=== PATIENT | male | born 1965 | race Caucasian/White ===

== ENCOUNTER 2024-07-16 18:00 | Inpatient (IN) | payer OTHER ==
[2024-07-16 18:02] VITALS: BMI 21.5
[2024-07-16] MEDS ORDERED: levETIRAcetam 500 MG TABLET (FP) PO ONE (18:08)
[2024-07-16] MEDS ORDERED: LORazepam 2 MG TABLET ONE (18:08)
[2024-07-16] MEDS ORDERED: DICYCLOMINE HCL 10 MG CAPSULE PO PRN (18:10)
[2024-07-16] MEDS ORDERED: BENZOCAINE/MENTHOL (CHLORASEPTIC ) LOZENGE MM PRN (18:10)
[2024-07-16] MEDS ORDERED: NICOTINE POLACRILEX 2 MG LOZENGE BC PRN (18:10)
[2024-07-16] MEDS ORDERED: ONDANSETRON *ODT* 4 MG TABLET SL PRN (18:10)
[2024-07-16] MEDS ORDERED: MAG HYDROX/AL HYDROX/SIMETH 30 ML UNIT-DOSE CUP PO PRN (18:10)
[2024-07-16] MEDS ORDERED: ACETAMINOPHEN 325 MG TABLET (FP) PO PRN (18:10)
[2024-07-16] MEDS ORDERED: LOPERAMIDE HCL 2 MG CAPSULE PO PRN (18:10)
[2024-07-16] MEDS ORDERED: P-EPHED 60MG/TRIPROLIDI 2.5MG TABLET PO PRN (18:10)
[2024-07-16] MEDS ORDERED: POLYETHYLENE GLYCOL (HEALTHYLAX) 3350 17 GM PACKET PO PRN (18:10)
[2024-07-16] MEDS ORDERED: NALOXONE (NARCAN) HCL 4 MG/0.1 ML SPRAY NS PRN (18:10)
[2024-07-16] MEDS ORDERED: IBUPROFEN 400 MG TABLET (FP) PO PRN (18:10)
[2024-07-16] MEDS ORDERED: BISMUTH SUBSALICYLATE 524 MG/30 ML PO PRN (18:10)
[2024-07-16] MEDS ORDERED: guaiFENesin 600 MG TABLET.ER (FP) PO PRN (18:10)
[2024-07-16] MEDS ORDERED: BENZONATATE 200 MG CAPSULE PO PRN (18:10)
[2024-07-16] MEDS ORDERED: NICOTINE POLACRILEX 2 MG GUM BUC PRN (18:10)
[2024-07-16] MEDS: LORazepam 2 MG TABLET PO ONE (18:11)
[2024-07-16] MEDS: levETIRAcetam 500 MG TABLET (FP) PO ONE (18:11)
[2024-07-16] MEDS ORDERED: chlordiazePOXIDE HCL 25 MG CAPSULE ONE (19:07)
[2024-07-16] MEDS: chlordiazePOXIDE HCL 25 MG CAPSULE PO ONE (19:11)
[2024-07-16] MEDS ORDERED: levETIRAcetam 250 MG TABLET PO ONE (21:39)
[2024-07-16] MEDS: levETIRAcetam 500 MG TABLET (FP) PO SCH (22:41)
[2024-07-16] MEDS: THIAMINE 100 MG TABLET PO SCH (22:41)
[2024-07-16] MEDS: MELATONIN 5 MG TABLETS PO SCH (22:41)
[2024-07-16] MEDS: chlordiazePOXIDE HCL 25 MG CAPSULE PO SCH (22:42)
[2024-07-17] MEDS ORDERED: levETIRAcetam 250 MG TABLET PO ONE (09:22)
[2024-07-17] MEDS: methaDONE HCL 40 MG DISPERSABLE TABLET PO ONE ×2 (09:24→09:42)
[2024-07-17] MEDS: PRENATAL VITAMINS W/ FOLIC ACID TABLET (FP) PO SCH (09:25)
[2024-07-17 13:05] LABS: POTASSIUM 4.2 mmol/L (3.5-5.1)
[2024-07-17 13:11] LABS: BLOOD UREA NITROGEN 11.5 mg/dL (7-18); HEMATOCRIT 35.9 % (35.4-49); HEMOGLOBIN 12.1 GM/dL (11.7-16.9); MCH 32.6 pg (25.7-33.7); MCHC 33.6 g/dl (32.0-35.9); MEAN CELL VOLUME 96.9 fl (80-96); MEAN PLT VOLUME 7.8 fl (7.5-11.1); PLATELET COUNT 162 10^3/uL (134-434); RDW 15.2 % (11.9-15.9); WHITE BLOOD COUNT 7.2 K/mm3 (4.0-10.0)
[2024-07-17 13:14] LABS: CREATININE 0.8 mg/dL (0.55-1.3)
[2024-07-17 13:15] LABS: BILIRUBIN,TOTAL 0.5 mg/dL (0.2-1); TOT PROT 6.6 g/dl (6.4-8.2)
[2024-07-17] MEDS: NICOTINE 21 MG/24 HOURS TOPICAL PATCH TD SCH (15:07)
[2024-07-17] MEDS: IBUPROFEN 600 MG TABLET (FP) PO PRN (23:02)
[2024-07-18] MEDS: chlordiazePOXIDE HCL 25 MG CAPSULE PO SCH (05:37)
[2024-07-18] MEDS: methaDONE HCL 40 MG DISPERSABLE TABLET PO SCH (05:38)
[2024-07-18 10:55] LABS: HEMATOCRIT 37.5 % (40.1-51.0); HEMOGLOBIN 11.9 g/dL (13.7-17.5); MCHC 31.7 g/dl (32.3-36.5); MEAN CELL VOLUME 99.5 fl (79.0-92.2); MEAN PLT VOLUME 10.5 fl (9.4-12.4); PLATELET COUNT # 177 x10^3/uL (163-337); RDW 13.8 % (12.2-16.1)
[2024-07-18 11:04] LABS: POTASSIUM 3.8 mmol/L (3.5-5.1)
[2024-07-18 11:16] LABS: ALBUMIN 3.4 g/dl (3.4-5.0); CALCIUM 9.1 mg/dL (8.5-10.1)
[2024-07-18 11:17] LABS: BLOOD UREA NITROGEN 14.7 mg/dL (7-18)
[2024-07-18 11:20] LABS: CREATININE 0.8 mg/dL (0.55-1.3)
[2024-07-18 11:21] LABS: BILIRUBIN,TOTAL 0.8 mg/dL (0.2-1); TOT PROT 7.5 g/dl (6.4-8.2)
[2024-07-18] MEDS: chlordiazePOXIDE HCL 25 MG CAPSULE PO PRN (13:32)
[2024-07-19] MEDS: chlordiazePOXIDE HCL 10 MG CAPSULE PO SCH (06:00)
[2024-07-19] MEDS: METHOCARBAMOL 500 MG TABLET PO PRN (10:14)
[2024-07-19] MEDS: chlordiazePOXIDE HCL 10 MG CAPSULE PO PRN (13:51)
[2024-07-19] MEDS: MAGNESIUM HYDROX 2400MG/30ML ORAL SUSPENSION 30 ML CUP PO PRN (17:26)
[2024-07-20] MEDS: chlordiazePOXIDE HCL 10 MG CAPSULE PO SCH (05:58)
[2024-07-20] MEDS ORDERED: methaDONE HCL 40 MG DISPERSABLE TABLET PO SCH (06:00)
[2024-07-21] MEDS: chlordiazePOXIDE HCL 10 MG CAPSULE PO ONE (05:50)
[2024-07-21] MEDS: BICTEGRAV/EMTRICIT/TENOFOV (BIKTARVY) 50-200-25 MG TABLET PO SCH (07:04)
[2024-07-21 07:16] VITALS: TEMP 97.7
[2024-07-21 09:19] VITALS: BP 90/69; PULSE 70; RESP 18
== END 2024-07-21 09:23 | disposition home or self-care (01) | DRG 773 ==
LOC: YASAS 18:00 → Y6N 19:16
PROVIDERS: ADMIT Allergy & Immunology; ATTEND Allergy & Immunology
PROC: HZ2ZZZZ Detoxification Services for Substance Abuse Treatment (ICD-10-PCS; principal; 2024-07-16)
DX: F10.230 Alcohol dependence with withdrawal, uncomplicated (principal); F11.20 Opioid dependence, uncomplicated; F17.210 Nicotine dependence, cigarettes, uncomplicated; F12.20 Cannabis dependence, uncomplicated; F14.20 Cocaine dependence, uncomplicated; Z21 Asymptomatic human immunodeficiency virus [HIV] infection status; R56.1 Post traumatic seizures; Z87.820 Personal history of traumatic brain injury; Z79.899 Other long term (current) drug therapy
CPT/HCPCS: 36415; 70110-TC-FY; 71111-TC-FY; 73110-TC-LT-FY; 73610-TC-LT-FY; 73630-TC-LT; 80053; 80305; 80307; 85027; 86780; 93005; 93010

== ENCOUNTER 2025-02-19 14:49 | Inpatient (IN) | payer OTHER ==
[2025-02-19 15:23] VITALS: BMI 22.1
[2025-02-19] MEDS ORDERED: BISMUTH SUBSALICYLATE 524 MG/30 ML PO PRN (15:44)
[2025-02-19] MEDS ORDERED: IBUPROFEN 400 MG TABLET (FP) PO PRN (15:44)
[2025-02-19] MEDS ORDERED: MAGNESIUM HYDROX 2400MG/30ML ORAL SUSPENSION 30 ML CUP PO PRN (15:44)
[2025-02-19] MEDS ORDERED: NALOXONE (NARCAN) HCL 4 MG/0.1 ML SPRAY NS PRN (15:44)
[2025-02-19] MEDS ORDERED: DICYCLOMINE HCL 10 MG CAPSULE PO PRN (15:44)
[2025-02-19] MEDS ORDERED: ONDANSETRON *ODT* 4 MG TABLET SL PRN (15:44)
[2025-02-19] MEDS ORDERED: BENZONATATE 200 MG CAPSULE PO PRN (15:44)
[2025-02-19] MEDS ORDERED: POLYETHYLENE GLYCOL (HEALTHYLAX) 3350 17 GM PACKET PO PRN (15:44)
[2025-02-19] MEDS ORDERED: IBUPROFEN 600 MG TABLET (FP) PO PRN (15:44)
[2025-02-19] MEDS ORDERED: MAG HYDROX/AL HYDROX/SIMETH 30 ML UNIT-DOSE CUP PO PRN (15:44)
[2025-02-19] MEDS ORDERED: hydrOXYzine PAMOATE 25 MG CAPSULE (FP) PO PRN (15:44)
[2025-02-19] MEDS ORDERED: guaiFENesin 600 MG TABLET.ER (FP) PO PRN (15:44)
[2025-02-19] MEDS ORDERED: LOPERAMIDE HCL 2 MG CAPSULE PO PRN (15:44)
[2025-02-19] MEDS ORDERED: BENZOCAINE/MENTHOL (CHLORASEPTIC ) LOZENGE MM PRN (15:44)
[2025-02-19] MEDS ORDERED: METHOCARBAMOL 500 MG TABLET PO PRN (15:44)
[2025-02-19] MEDS ORDERED: FLU VACC TS2025-26(6MOS UP)/PF 45 MCG/0.5 ML SYRINGE IM ONE (16:24)
[2025-02-19] MEDS ORDERED: PNEUMOC 20-VAL CONJ-DIP CRM/PF 0.5 ML SYRINGE IM ONE (16:24)
[2025-02-19] MEDS: THIAMINE 100 MG TABLET PO SCH (22:03)
[2025-02-19] MEDS: ACAMPROSATE CALCIUM 333 MG TABLET.DR PO SCH (22:03)
[2025-02-19] MEDS: MELATONIN 5 MG TABLETS PO SCH (22:03)
[2025-02-19] MEDS: levETIRAcetam 500 MG TABLET (FP) PO SCH (22:04)
[2025-02-19] MEDS: GABAPENTIN 300 MG CAPSULE PO SCH (22:04)
[2025-02-19] MEDS: MIRTAZAPINE 15 MG TABLET (FP) PO SCH (22:04)
[2025-02-20] MEDS: BICTEGRAV/EMTRICIT/TENOFOV (BIKTARVY) 50-200-25 MG TABLET PO SCH (07:19)
[2025-02-20 09:56] LABS: MCHC 30.7 g/dl (32.3-36.5); MEAN CELL VOLUME 99.7 fl (79.0-92.2); MEAN PLT VOLUME 9.8 fl (9.4-12.4); RDW 14.1 % (12.2-16.1)
[2025-02-20 10:09] LABS: GLUCOSE,RANDOM 113 mg/dL (74-106); TOT PROT 6.6 g/dl (6.4-8.2)
[2025-02-20 10:10] LABS: CO2 27 mmol/L (21-32)
[2025-02-20 10:12] LABS: ALK PHOS 68 U/L (40-150)
[2025-02-20 10:14] LABS: SGOT/AST 36 U/L (5-34); SGPT/ALT 18 U/L (0-55)
[2025-02-20 10:15] LABS: CREATININE 0.79 mg/dL (0.55-1.3)
[2025-02-20] MEDS: FLU VACC TS2025-26(6MOS UP)/PF 45 MCG/0.5 ML SYRINGE IM ONE (10:25)
[2025-02-20] MEDS: PRENATAL VITAMINS W/ FOLIC ACID TABLET (FP) PO SCH (10:26)
[2025-02-20] MEDS: PNEUMOC 20-VAL CONJ-DIP CRM/PF 0.5 ML SYRINGE IM ONE (10:35)
[2025-02-20] MEDS: ACETAMINOPHEN 325 MG TABLET (FP) PO PRN (17:45)
[2025-02-20] MEDS: DOXYCYCLINE HYCLATE 100 MG TABLET PO SCH (18:20)
[2025-02-21 18:02] LABS: MCHC 30.5 g/dl (32.3-36.5); MEAN CELL VOLUME 101.0 fl (79.0-92.2); MEAN PLT VOLUME 9.8 fl (9.4-12.4); RDW 14.1 % (12.2-16.1)
[2025-02-21] MEDS: NICOTINE POLACRILEX 2 MG GUM BUC PRN (22:10)
[2025-02-23 18:33] VITALS: RESP 20; TEMP 98.9
[2025-02-23 19:04] VITALS: BP 81/60; PULSE 101
== END 2025-02-23 23:35 | disposition home or self-care (01) | DRG 773 ==
LOC: YASAS 14:49 → SUATTDRO 14:49 → Y3N 16:10
PROVIDERS: ADMIT Family Medicine; ATTEND Counselor Addiction (Substance Use Disorder)
PROC: HZ2ZZZZ Detoxification Services for Substance Abuse Treatment (ICD-10-PCS; principal; 2025-02-19)
DX: F10.230 Alcohol dependence with withdrawal, uncomplicated (principal); F11.20 Opioid dependence, uncomplicated; F14.20 Cocaine dependence, uncomplicated; F17.210 Nicotine dependence, cigarettes, uncomplicated; F31.9 Bipolar disorder, unspecified; F19.282 Other psychoactive substance dependence with psychoactive substance-induced sleep disorder; F19.24 Other psychoactive substance dependence with psychoactive substance-induced mood disorder; F39 Unspecified mood [affective] disorder; Z21 Asymptomatic human immunodeficiency virus [HIV] infection status; J18.9 Pneumonia, unspecified organism; R56.1 Post traumatic seizures; Z87.820 Personal history of traumatic brain injury
CPT/HCPCS: 36415; 71046-TC-FY; 80053; 80177; 80307; 82140; 85027; 86780; 87637-QW; 90656; 90677; 93005; 93010